=== PATIENT | male | born 1965 | race Hispanic/Latino ===

== ENCOUNTER 2019-08-18 08:27 | Day surgery (SDC) | payer BC ==
[2019-08-18] MEDS ORDERED: METOPROLOL TARTRATE 5 MG/5 ML INJ IV PRN (08:56)
[2019-08-18] MEDS ORDERED: NITROGLYCERIN 0.4 MG TAB SUBL SL ONE (08:56)
[2019-08-18] MEDS ORDERED: ATROPINE 1 MG/ML VIAL IV PRN (08:59)
[2019-08-18] MEDS ORDERED: METOPROLOL TARTRATE 50 MG TAB ONE (09:21)
[2019-08-18 09:56] LABS: Blood Urea Nitrogen 14 mg/dL (9-20)
[2019-08-18] MEDS ORDERED: METOPROLOL TARTRATE 100 MG TAB PO SCH (10:00)
[2019-08-18 11:15] VITALS: BP 147/99
--- NOTE | 2019-08-18 13:22 | Cat Scan Report ---
LIMITED CTA CHEST Indication: Limited evaluation of the chest associated with cardiac CTA exam. Technique: Arterial phase technique utilized to evaluate the carotid arteries. Please refer to the of ficial cardiac CTA report for contrast details. All CT scans at this location are performed using CT dose reduction for ALARA by means of automated exposure control. Findings: No pathologic adenopathy. Visualized lungs are clear with no significant parenchymal dise ase. Visualized osseous structures are within normal limits. Limited imaging through the upper abdom en demonstrates mild fatty infiltration throughout the visualized liver. No focal mass.. Impression: No significant incidental finding. Signer Name: Oswaldo Zapata Jr, MD Signed: 08/18/2019 1:17 PM Workstation Name: [id number]
--- NOTE | 2019-08-29 07:30 | CT Calcium Scoring Report ---
Coronary Calcium Score Date of service: 08/29/19 Procedure: High-resolution computed tomographic imaging of the chest was performed on08/18/19 with particular attention paid to the coronary arteries. Images from the examination were analyzed for the presence and extent of coronary artery calcification, using coronary calcium quantification software. The patient tolerated the procedure well and there were no complications. The results of the coronary calcification analysis are provided below. The patient scores are compared with published data related to scores for people of a similar age and the same gender. - Findings Total Agatson Score: 0 Findings: Cardiac CTA Indication: Informed consent obtained Procedure: The patient was brought to the cardiac ct laboratory at [facility] in stable condition after a 4 hour fast. Heart rate was regulated by beta blockade. Sublingual ngt was administered. A coronary calcium score was performed via the Agatston method. Left ventricular systolic function was assessed by the threshold based volumetric segmentation approach. A separate radiology assessment of the non cardiac structures in the field of view will be provided. Superior vena cava in the field of view appears normal Inferior vena cava in the filed of view appears normal Ascending aorta in the field of view appears normal Descending aorta in the field of view appears normal Pulmonary artery in the filed of view appears normal Pulmonary veins enter the left atrium appropriately Left ventricle appears normal Right Ventricle appears normal Left atrium appears normal Left atrial appendage appears normal Right atrium appears normal Interventricular septum appears normal Interatrial septum appears normal Aortic valve exhibits mild calcification Mitral Valve appears normal Intracardiac mass: none Pericardial effusion: none Coronary Angiography: Dominance: right coronary artery Origins: normal coronary artery origins Left main: normal Left anterior descending coronary artery and diagonal branches: normal Circumflex coronary artery and obtuse marginal branches: normal Right coronary artery: normal left ventriculography: left ventricular ejection fraction 62%, normal systolic wall thickening the procedure was tolerated well. there were no procedural complications
== END 2019-08-18 11:00 | disposition home or self-care (01) ==
LOC: CATHLABREC 08:27
PROVIDERS: ATTEND Internal Medicine
DX: Z79.899 Other long term (current) drug therapy (principal)
CPT/HCPCS: 36415; 75574; 82565; 84520; Q9967; J0461